=== PATIENT | male | born 1955 | race Caucasian/White ===

== ENCOUNTER 2020-08-28 06:53 | Emergency (ER) | payer BC ==
[~2020-08-28] VITALS: Ht 167.6 cm; Wt 104.0 kg
--- NOTE | 2020-08-28 07:22 | NUR ---
PT CAME IN CO OF PALPITATIONS THAT STARTED IN HIS SLEEP LAST NIGHT. "IT MUST HAVE STARTED DURING THE NIGHT BECUASE I DIDNT NOTICE IT UNTIL THIS MORNING". PT STATES HIS HEART HAS BEEN RACING ALL MORNING AND HE HAS HAD SOME SOB. PT DENIES CP AT THIS TIME. EKG COMPLETE. PROVIDER BEDSIDE FOR ASSESSMENT. PT IS CONNECTED TO ALL MONITORING EQUIPMENT
[2020-08-28] MEDS ORDERED: ASPIRIN 81 MG TABLET CHEW ONE (07:42)
[2020-08-28] MEDS ORDERED: SODIUM CHLORIDE FLUSH 10ML SYR IVF ONE (08:00)
[2020-08-28] MEDS ORDERED: ASPIRIN 81 MG TABLET CHEW PO ONE (08:00)
[2020-08-28 08:07] LABS: BASOPHILS % (AUTO) 0 % (0-1); EOSINOPHILS % (AUTO) 0 % (1-7); LYMPHOCYTES % (AUTO) 6 % (22-44); MEAN CORPUSCULAR HGB CONC 30.9 g/dL (33.2-36.2); MEAN PLATELET VOLUME 8.2 fL (7.4-10.4); MONOCYTES % (AUTO) 10 % (2-9); NEUTROPHILS % (AUTO) 83 % (42-75); PLATELET COUNT 246 x10^3/uL (130-400); RED BLOOD COUNT 4.58 x10^6/uL (4.38-5.82); RED CELL DISTRIBUTION WIDTH 17.6 % (9.4-14.8)
[2020-08-28 08:13] LABS: ALANINE AMINOTRANSFERASE 23 U/L (12-78); ALBUMIN 3.6 g/dL (3.4-5.0); ANION GAP 6 mmol/L (5-15); CALCIUM 8.1 mg/dL (8.5-10.1); CHLORIDE 109 mmol/L (98-107); CREATININE 1.29 mg/dL (0.7-1.3)
[2020-08-28 08:18] LABS: ALKALINE PHOSPHATASE 54 U/L (45-117); BILIRUBIN,TOTAL 0.7 mg/dL (0.2-1.0); TOTAL PROTEIN 6.8 g/dL (6.4-8.2); TROPONIN I 0.016 ng/mL (0.000-0.045)
[2020-08-28 08:38] VITALS: BP 119/70
[2020-08-28 09:05] LABS: <PLATELET ESTIMATE> ADEQUATE; <PLT MORPHOLOGY> NORMAL PLT MORPH; ANISOCYTOSIS 1+; MD MORPH REVIEW ONLY; MICROCYTOSIS 2+
[2020-08-28 09:06] LABS: HYPOCHROMIA 1+
[2020-08-28 10:30] LABS: TROPONIN I 0.019 ng/mL (0.000-0.045)
== END 2020-08-28 11:50 | disposition home or self-care (01) ==
LOC: ED 07:55
DX: R00.2 Palpitations (principal); I45.10 Unspecified right bundle-branch block; I25.2 Old myocardial infarction; R00.0 Tachycardia, unspecified; E03.9 Hypothyroidism, unspecified; G47.30 Sleep apnea, unspecified; I10 Essential (primary) hypertension
CPT/HCPCS: 36415; 71045; 80053; 83880; 84484; 85025; 85379; 93005; 99285